=== PATIENT | male | born 1960 | race Caucasian/White ===

== ENCOUNTER 2019-01-07 01:57 | Emergency (ER) | payer OTHER ==
[~2019-01-07] VITALS: Ht 172.7 cm; Wt 81.6 kg
[2019-01-07 01:57] VITALS: BP_SYST 152
--- NOTE | 2019-01-07 02:00 | NUR ---
Patient to ER bed 6 to gown for evaluation. Side rails up.
[2019-01-07] MEDS ORDERED: NACL 0.9% 1,000 ML IV ONE (02:07)
--- NOTE | 2019-01-07 02:10 | NUR ---
ER at bedside examining patient.
--- NOTE | 2019-01-07 02:15 | NUR ---
Pt came to the ED for chest pain. Reports he was having drinks when he developed chest pain with SOB. reports that he usually takes claritin daily but did not today. Reports he has had a similiar episode like this before. States he felt, "pain and then freaks out." HX of HTN however, is non-compliant. Denies n/v/d or fever. En route pt received nitroglycerin and ASA with relief. Describes pain as pressure-like. No other complaints/injuries noted. Will cont. to monitor.
[2019-01-07 02:47] LABS: BASOPHILS % (AUTO) 0.5 % (0.0-2.0); EOSINOPHILS # (AUTO) 0.4 K/uL (0.0-0.4); EOSINOPHILS % (AUTO) 6.5 % (0.0-4.0); HEMATOCRIT 41.1 % (36-54); HEMOGLOBIN 14.6 g/dL (14.0-18.0); LYMPHOCYTES # (AUTO) 2.5 K/uL (1.0-5.5); LYMPHOCYTES % (AUTO) 39.7 % (20.5-51.5); MEAN CORPUSCULAR HEMOGLOBIN 36 pg (27-31); MEAN CORPUSCULAR HGB CONC 36 % (32-36); MEAN CORPUSCULAR VOLUME 100 fL (79.0-98.0); MONOCYTES # (AUTO) 0.5 K/uL (0.0-1.0); MONOCYTES % (AUTO) 8.6 % (1.7-9.3); NEUTROPHILS # (AUTO) 2.8 K/uL (1.8-7.7); NEUTROPHILS % (AUTO) 44.7 % (40.0-70.0); PLATELET COUNT (AUTO) 235 K/uL (130-430); RED CELL DISTRIBUTION WIDTH 13.3 % (9.0-15.0); WHITE BLOOD COUNT (AUTO) 6.3 K/uL (4.8-10.8)
[2019-01-07 02:58] LABS: ANION GAP 6 (5-15); CALCIUM 8.3 mg/dL (8.4-11.0); CHLORIDE 101 mmol/L (98-107); CREATININE 0.93 mg/dL (0.55-1.30); GLUCOSE 89 mg/dL (70-99); POTASSIUM 3.5 mmol/L (3.5-5.1); SODIUM SERUM 134 mmol/L (136-145); UREA NITROGEN, BLOOD 9 mg/dL (8-21)
--- NOTE | 2019-01-07 03:00 | NUR ---
Relatives at bedside.
[2019-01-07 03:05] LABS: GFR AFRICAN AMERICAN 107 mL/min (>90)
[2019-01-07 03:10] LABS: ALANINE AMINOTRANSFERASE 29 U/L (12-78); ALBUMIN 3.6 g/dL (3.4-4.8); ASPARTATE AMINOTRANSFERASE 36 U/L (10-37); TOTAL BILIRUBIN 0.3 mg/dL (0.0-1.0)
--- NOTE | 2019-01-07 04:33 | NUR ---
Pt resting in bed, no signs of acute distress. Will cont. to monitor.
--- NOTE | 2019-01-07 05:24 | NUR ---
Pt resting comfortably in bed, no signs of acute distress. Will cont. to monitor.
[2019-01-07 06:40] VITALS: BP_SYST 132
--- NOTE | 2019-01-07 06:40 | NUR ---
Patient given written and verbal discharge instructions and verbalizes understanding. ER MD discussed with patient the results and treatment provided. Patient in stable condition. ID arm band removed. IV catheter removed intact and dressing applied, no active bleeding Patient educated on pain management and to follow up with PMD. Pain Scale 0/10 Opportunity for questions provided and answered.
== END 2019-01-07 06:40 | disposition home or self-care (01) ==
LOC: SED 01:57
DX: R07.9 Chest pain, unspecified (principal); R06.02 Shortness of breath; I10 Essential (primary) hypertension; F17.210 Nicotine dependence, cigarettes, uncomplicated; Z96.653 Presence of artificial knee joint, bilateral
CPT/HCPCS: 36415; 71045; 80053; 84484; 85025; 93005; 99284; J7030